=== PATIENT | male | born 1960 | race Caucasian/White ===

== ENCOUNTER 2016-11-22 22:06 | Emergency (ER) | payer OTHER ==
[~2016-11-22] VITALS: Ht 175.3 cm; Wt 122.5 kg
[~2016-11-22 22:06] MED LIST: Z.0.NO CURRENT MEDS
[2016-11-22 22:13] VITALS: BP 131/82; PULSE 108; RESP 18; TEMP 98.5; O2SAT 95
[2016-11-22 22:55] LABS: AMPHETAMINE, URINE NEG (NEG); BARBITURATES, URINE NEG (NEG); COCAINE, URINE NEG (NEG)
[2016-11-22 22:59] LABS: AUTOMATED NEUTROPHIL # 3.5 TH/MM3 (1.8-7.7); BASOPHIL # 0.1 TH/MM3 (0-0.2); BASOPHIL % 0.6 % (0.0-2.0); EOSINOPHIL # 0.1 TH/MM3 (0-0.4); HEMATOCRIT 41.2 % (39.0-51.0); HEMO FLAGS DIFF FINAL; LYMPH % 50.7 % (9.0-44.0); LYMPHOCYTE # 4.6 TH/MM3 (1.0-4.8); MEAN CELL VOLUME 75.1 FL (80.0-100.0); MEAN CORPUSCULAR HEMOGLOBIN 25.4 PG (27.0-34.0); MEAN CORPUSCULAR HGB CONC 33.8 % (32.0-36.0); MONO % 9.1 % (0.0-8.0); NEUT % 38.6 % (16.0-70.0); PLATELET COUNT 232 TH/MM3 (150-450); RED BLOOD COUNT 5.49 MIL/MM3 (4.50-5.90); RED CELL DISTRIBUTION WIDTH 17.5 % (11.6-17.2); WHITE BLOOD COUNT 9.1 TH/MM3 (4.0-11.0)
[2016-11-22 23:01] LABS: ALT (GPT) 41 U/L (12-78); ANION GAP 13 MEQ/L (5-15); AST (GOT) 37 U/L (15-37); BICARBONATE 21.2 MEQ/L (21.0-32.0); BLOOD UREA NITROGEN 10 MG/DL (7-18); CHLORIDE 104 MEQ/L (98-107); GLOMERULAR FILTRATION RATE 69 ML/MIN (>89); POTASSIUM 4.1 MEQ/L (3.5-5.1); SODIUM (NA) 138 MEQ/L (136-145)
[2016-11-22 23:06] LABS: ALKALINE PHOSPHATASE 158 U/L (45-117); TOTAL BILIRUBIN ADULT 0.5 MG/DL (0.2-1.0)
--- NOTE | 2016-11-23 00:53 | PD ---
HPI Chief Complaint: Psychiatric Symptoms Time Seen by Provider: 23:46 Travel History International Travel<30 days: No Contact w/Intl Traveler<30days: No Traveled to known affect area: No History of Present Illness HPI Patient's 56-year-old male presents emergency department after being found in the parking lot intoxicated. Patient apparently made statements to police that he was suicidal and patient states on arrival to the emergency department is been feeling depressed for a long time and did have some suicidal thoughts. Patient does have some abrasions on the right side of his face and does not recall how they got there tonight. Patient is fairly intoxicated on arrival. He denies any chest pain shortness of breath abdominal pain nausea vomiting diarrhea headache or loss of consciousness. Patient does have some complaints of bilateral knee pain which she states she's had for years" if I x-ray and he' ll see that [he's] not faking". PFSH Past Medical History Diminished Hearing: No Hypertension: Yes Immunizations Current: Yes Tetanus Vaccination: > 5 Years Influenza Vaccination: No Social History Alcohol Use: Yes (social) Tobacco Use: No Substance Use: No Allergies-Medications (Allergen,Severity, Reaction): Coded Allergies: No Known Allergies (Verified , 11/22/16) Reported Meds & Prescriptions Reported Meds & Active Scripts Active Reported No Current Meds (Miscellaneous Medication) Misc Review of Systems Except as stated in HPI: all other systems reviewed are Neg Physical Exam Narrative GENERAL: Well-developed well-nourished no apparent distress SKIN: Focused skin assessment warm/dry. HEAD: No mujica signs no raccoons eyes, there is some abrasions over the right side of his face none of these require repair there is no bruising no ecchymosis. Normocephalic. EYES: Pupils equal and round. No scleral icterus. No injection or drainage. ENT: No nasal bleeding or discharge. Mucous membranes pink and moist. TMs clear bilaterally. NECK: Trachea midline. No JVD. CARDIOVASCULAR: Regular rate and rhythm. No murmur appreciated. RESPIRATORY: No accessory muscle use. Clear to auscultation. Breath sounds equal bilaterally. GASTROINTESTINAL: Abdomen soft, non-tender, nondistended. Hepatic and splenic margins not palpable. MUSCULOSKELETAL: No obvious deformities. No clubbing. No cyanosis. No edema. No tenderness at either knee, no swelling, ambulatory in the emergency department. Pulse motor and sensory intact distally in all 4 extremities. Compartments are soft in all 4 extremities. NEUROLOGICAL: Awake and alert. No obvious cranial nerve deficits. Motor grossly within normal limits. Normal speech. PSYCHIATRIC: Appropriate mood and affect; insight and judgment normal. Data Data Last Documented VS Vital Signs Date Time Temp Pulse Resp B/P Pulse Ox O2 Delivery O2 Flow Rate FiO2 11/22/16 22:13 98.5 108 18 131/82 95 Orders Complete Blood Count With Diff (11/22/16 22:18) Comprehensive Metabolic Panel (11/22/16 22:18) Psych Screen (11/22/16 22:18) Drug Screen, Random Urine (11/22/16 22:18) Alcohol (Ethanol) (11/22/16 22:18) Ct Brain W/O Iv Contrast(Rout) (11/23/16 ) Ct Cerv Spine W/O Contrast (11/23/16 ) Acetaminophen (Tylenol) (11/23/16 01:45) Tetanus/Diphtheria Tox Adult (Tetanus/Di (11/23/16 01:45) Labs Laboratory Tests Test 11/22/16 11/22/16 22:25 22:30 White Blood Count 9.1 TH/MM3 Red Blood Count 5.49 MIL/MM3 Hemoglobin 13.9 GM/DL Hematocrit 41.2 % Mean Corpuscular Volume 75.1 FL Mean Corpuscular Hemoglobin 25.4 PG Mean Corpuscular Hemoglobin 33.8 % Concent Red Cell Distribution Width 17.5 % Platelet Count 232 TH/MM3 Mean Platelet Volume 8.2 FL Neutrophils (%) (Auto) 38.6 % Lymphocytes (%) (Auto) 50.7 % Monocytes (%) (Auto) 9.1 % Eosinophils (%) (Auto) 1.0 % Basophils (%) (Auto) 0.6 % Neutrophils # (Auto) 3.5 TH/MM3 Lymphocytes # (Auto) 4.6 TH/MM3 Monocytes # (Auto) 0.8 TH/MM3 Eosinophils # (Auto) 0.1 TH/MM3 Basophils # (Auto) 0.1 TH/MM3 CBC Comment DIFF FINAL Differential Comment Sodium Level 138 MEQ/L Potassium Level 4.1 MEQ/L Chloride Level 104 MEQ/L Carbon Dioxide Level 21.2 MEQ/L Anion Gap 13 MEQ/L Blood Urea Nitrogen 10 MG/DL Creatinine 1.11 MG/DL Estimat Glomerular Filtration 69 ML/MIN Rate Random Glucose 273 MG/DL Calcium Level 8.5 MG/DL Total Bilirubin 0.5 MG/DL Aspartate Amino Transf 37 U/L (AST/SGOT) Alanine Aminotransferase 41 U/L (ALT/SGPT) Alkaline Phosphatase 158 U/L Total Protein 8.4 GM/DL Albumin 4.2 GM/DL Ethyl Alcohol Level 332 MG/DL Urine Opiates Screen NEG Urine Barbiturates Screen NEG Urine Amphetamines Screen NEG Urine Benzodiazepines Screen POS Urine Cocaine Screen NEG Urine Cannabinoids Screen NEG MDM Medical Decision Making Medical Screen Exam Complete: Yes Emergency Medical Condition: Yes Differential Diagnosis Alcohol intoxication, fall, head injury, facial abrasions, suicidal ideation. Narrative Course Patient is a 56 year old male presents to the ER for evaluation of alcohol intoxication and lynn act. Patient has some minor abrasions on the right side of face and states she does not know how they got there. A CT head and C-spine are performed and are negative. None of these abrasions need repair. Patient has no other medical complaints except for chronic knee pain. He was given Tylenol as well as tetanus updated. Basic labs are obtained and reassuring. His alcohol level is 332. After a period of observation in the emergency department his vital signs remained stable needs sleeping soundly in no apparent distress. He is medically cleared for psychiatric evaluation and disposition. Diagnosis Primary Impression: Closed head injury Qualified Code: S09.90XA - Closed head injury, initial encounter Additional Impression: Suicidal ideation Condition: Stable Yung Ray MD Nov 23, 2016 00:53
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
[2016-11-23] MEDS ORDERED: ACETAMINOPHEN 325 MG TAB PO ONE (01:45)
[2016-11-23] MEDS ORDERED: TETANUS/DIPHTHERIA TOXOID ADULT 0.5 ML VIAL IM ONE (01:45)
--- NOTE | 2016-11-23 08:34 | PD ---
History of Present Illness Chief Complaint: Psychiatric Symptoms Time Seen by Provider: 08:25 Travel History International Travel<30 Days: No Contact w/Intl Traveler<30days: No Known affected area: No Legal Status Legal Status: Doss Act History of Present Illness: History of Present Illness Patient's 56-year-old male with self reported history of bipolar disorder as well as alcohol dependence who presents emergency department after being found in the parking lot intoxicated. Patient apparently made statements to police that he was suicidal and therefore was placed under a BA. Patient on arrival to ed with BAL of 332. Toxicology is positive for benzos. Patient seen this morning in main ED. He is clinically sober. He is alert and oriented. Speech is clear, logical. He is irritable and initially resistant to answering questions. He is vague regarding previous psychiatric history and is unable to remember his previous medications. He states " I am suicidal and I was thinking of jumping off a bridge because I am in so much pain with my knee. " He denies any other psychiatric symptomatology, denies depressive symptoms and denies any anxiety symptoms. He requests medication for pain in his knee. Patient reports that he drinks 12 beers every day and has been doing so " for many years". When I address alcohol use and detox he states " I am not here for detox". I'm here because I am suicidal". In terms of the positive toxicology he believes it's from medication he received at another hospital he was last week. [facility] Past Medical History Diminished Hearing: No Hypertension: Yes Immunizations Current: Yes Tetanus Vaccination: > 5 Years Influenza Vaccination: No Psychiatric History Psychiatric History Hx Psychiatric Treatment: In patient tx " about 2 years ago" in [place] Reports dx w bipolar disorder Reports outpatietn treatment " I don't remember the name" Does not remember the medication he has taken History of Inpatient Treatment: Yes Guns or firearms in home: No Social History Born i [place]. Raised in [place], single never . 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 Staying with some friends. Hx Alcohol Use: Yes (Reports he has been drinking for several years. Usually a 12 pack per day. ) Hx Tobacco Use: No Hx Substance Use: No Hx of Substance Use Treatment: No Family Psychiatric History None Allergies-Medications (Allergen,Severity, Reaction): Coded Allergies: No Known Allergies (Verified , 11/22/16) Reported Meds & Prescriptions Reported Meds & Active Scripts Active Reported No Current Meds (Miscellaneous Medication) [facility] [place] Review of Systems Constitutional: DENIES: Diaphoretic episodes, Fatigue, Fever, Weight gain, Weight loss, Chills, Dizziness, Change in appetite, Night Sweats Endocrine: DENIES: Heat/cold intolerance, Polydipsia, Polyuria, Polyphagia Eyes: DENIES: Blurred vision, Diplopia, Eye inflammation, Eye pain, Vision loss , Photosensitivity, Double Vision Ears, nose, mouth, throat: DENIES: Tinnitus, Hearing loss, Vertigo, Nasal discharge, Oral lesions, Throat pain, Hoarseness, Ear Pain, Running Nose, Epistaxis, Sinus Pain, Toothache, Odynophagia Respiratory: DENIES: Apneas, Cough, Snoring, Wheezing, Hemoptysis, Sputum production, Shortness of breath Cardiovascular: DENIES: Chest pain, Palpitations, Syncope, Dyspnea on Exertion , PND, Lower Extremity Edema, Orthopnea, Claudication Gastrointestinal: DENIES: Abdominal pain, Black stools, Bloody stools, Constipation, Diarrhea, Nausea, Vomiting, Difficulty Swallowing, Anorexia Genitourinary: DENIES: Sexual dysfunction, Urinary frequency, Urinary incontinence, Urgency, Hematuria, Dysuria, Nocturia, Penile Discharge, Testicular Pain, Testicular Swelling Musculoskeletal: COMPLAINS OF: Joint pain Integumentary: DENIES: Abnormal pigmentation, Nail changes, Pruritus, Rash Hematologic/lymphatic: DENIES: Bruising, Lymphadenopathy Immunologic/allergic: DENIES: Eczema, Urticaria Neurologic: DENIES: Abnormal gait, Headache, Localized weakness, Paresthesias, Seizures, Speech Problems, Tremor, Poor Balance Psychiatric: COMPLAINS OF: Suicidal Ideation Exam Alert: Yes [place]: Person (ox4) Mood: Angry, Other (Irritable) Affect: Other (congruent to mood) Speech: Clear, Logical Eye Contact: Indirect Memory Intact: Comment (vague) Hallucinations: Other (negative) Delusions: No Suicidal: Ideation (deneis ) Homicidal: Ideation (deneis) Insight/Judgement poor.not impaired MDM Medical Decision Making Medical Record Reviewed: Yes Assessment/Plan 56 year old male with history of alcohol dependence and reported hx of Bipolar disorder who in context of alcohol intoxication reported suicidal ideation. Patient was allowed to sober up clinically and he continued to report suicidal ideation . patient also making several requests for pain medication as well as benzos. Patient was transferred to [facility] for disposition and once in [facility] he recanted his suicidal ideation. He states " I was just not feeling well but to be honest I don't have the guts to do anything ". He requests discharge and states ' I have far to go". I strongly suspect he was malingering his symptoms in order to obtain narcotics. Will lift BA and discharge recommend SMA. Orders Complete Blood Count With Diff (11/22/16 22:18) Comprehensive Metabolic Panel (11/22/16 22:18) Psych Screen (11/22/16 22:18) Drug Screen, Random Urine (11/22/16 22:18) Alcohol (Ethanol) (11/22/16 22:18) Ct Brain W/O Iv Contrast(Rout) (11/23/16 ) Ct Cerv Spine W/O Contrast (11/23/16 ) Acetaminophen (Tylenol) (11/23/16 01:45) Tetanus/Diphtheria Tox Adult (Tetanus/Di (11/23/16 01:45) Results Vital Signs Date Time Temp Pulse Resp B/P Pulse Ox O2 Delivery O2 Flow Rate FiO2 11/22/16 22:13 98.5 108 18 131/82 95 Laboratory Tests Test 11/22/16 11/22/16 22:25 22:30 White Blood Count 9.1 Red Blood Count 5.49 Hemoglobin 13.9 Hematocrit 41.2 Mean Corpuscular Volume 75.1 Mean Corpuscular Hemoglobin 25.4 Mean Corpuscular Hemoglobin 33.8 Concent Red Cell Distribution Width 17.5 Platelet Count 232 Mean Platelet Volume 8.2 Neutrophils (%) (Auto) 38.6 Lymphocytes (%) (Auto) 50.7 Monocytes (%) (Auto) 9.1 Eosinophils (%) (Auto) 1.0 Basophils (%) (Auto) 0.6 Neutrophils # (Auto) 3.5 Lymphocytes # (Auto) 4.6 Monocytes # (Auto) 0.8 Eosinophils # (Auto) 0.1 Basophils # (Auto) 0.1 CBC Comment DIFF FINAL Differential Comment Sodium Level 138 Potassium Level 4.1 Chloride Level 104 Carbon Dioxide Level 21.2 Anion Gap 13 Blood Urea Nitrogen 10 Creatinine 1.11 Estimat Glomerular Filtration 69 Rate Random Glucose 273 Calcium Level 8.5 Total Bilirubin 0.5 Aspartate Amino Transf 37 (AST/SGOT) Alanine Aminotransferase 41 (ALT/SGPT) Alkaline Phosphatase 158 Total Protein 8.4 Albumin 4.2 Ethyl Alcohol Level 332 Urine Opiates Screen NEG Urine Barbiturates Screen NEG Urine Amphetamines Screen NEG Urine Benzodiazepines Screen POS Urine Cocaine Screen NEG Urine Cannabinoids Screen NEG Diagnosis Primary Impression: Alcohol intoxication Additional Impressions: Closed head injury Alcohol-induced mood disorder Ruled Out: Suicidal ideation Prescriptions Unable to Obtain Active Prescriptions or Reported Meds Condition: Stable Problem Qualifiers Primary Impression: Alcohol intoxication Qualified Code: F10.120 - Alcohol intoxication, uncomplicated Additional Impressions: Closed head injury Qualified Code: S09.90XA - Closed head injury, initial encounter Vianney Rogel Nov 23, 2016 08:34
[2016-11-23 08:46] VITALS: BP 171/82; PULSE 78; RESP 16; O2SAT 98
[2016-11-23 10:50] VITALS: BP 167/102; PULSE 100; RESP 18; TEMP 98.3; O2SAT 98
[2016-11-23 11:10] VITALS: BP 165/100; PULSE 100; RESP 18
[2016-11-23] MEDS ORDERED: cloNIDine HCL 0.1 MG TAB PO ONE (11:30)
== END 2016-11-23 13:05 | disposition home or self-care (01) ==
LOC: NEDAMB 22:06 → NEPJ 11-23 13:05
DX: S09.90XA Unspecified injury of head, initial encounter (principal); S00.81XA Abrasion of other part of head, initial encounter; F10.120 Alcohol abuse with intoxication, uncomplicated; R45.851 Suicidal ideations; I10 Essential (primary) hypertension; Z86.59 Personal history of other mental and behavioral disorders; Z87.39 Personal history of other diseases of the musculoskeletal system and connective tissue; X58.XXXA Exposure to other specified factors, initial encounter
CPT/HCPCS: 70450; 72125; 80053; 80307; 85025

== ENCOUNTER 2016-11-23 20:20 | Emergency (ER) | payer SELFPAY ==
[~2016-11-23] VITALS: Ht 175.3 cm; Wt 121.8 kg
[2016-11-23 21:30] LABS: BLOOD, URINE NEG (NEG); GLUCOSE,URINE 1000 mg/dL (NEG); HYALINE CAST, URINE 1 /lpf (RARE); KETONE, URINE NEG (NEG); NITRITE,URINE NEG (NEG); URINE COLOR LIGHT-YELLOW (YELLW/STRAW)
[2016-11-23 21:31] LABS: COMMENT (UR) CULT NOT INDICATED; CULTURE IF INDICATED CULT NOT INDICATED
[2016-11-23 22:01] VITALS: BP 126/76; PULSE 112; RESP 21; TEMP 96.7; O2SAT 92
[2016-11-23 22:03] LABS: AMPHETAMINE, URINE NEG (NEG); BARBITURATES, URINE NEG (NEG); COCAINE, URINE NEG (NEG)
[2016-11-23 22:59] VITALS: BP 151/93; PULSE 99; RESP 20; TEMP 98
[2016-11-23 23:55] LABS: AUTOMATED NEUTROPHIL # 6.3 TH/MM3 (1.8-7.7); BASOPHIL % 0.3 % (0.0-2.0); EOSINOPHIL # 0.1 TH/MM3 (0-0.4); EOSINOPHIL % 0.9 % (0.0-4.0); HEMATOCRIT 37.3 % (39.0-51.0); LYMPH % 35.3 % (9.0-44.0); LYMPHOCYTE # 3.8 TH/MM3 (1.0-4.8); MEAN CELL VOLUME 75.8 FL (80.0-100.0); MEAN CORPUSCULAR HEMOGLOBIN 24.9 PG (27.0-34.0); MEAN CORPUSCULAR HGB CONC 32.8 % (32.0-36.0); MONO % 5.6 % (0.0-8.0); NEUT % 57.9 % (16.0-70.0); PLATELET COUNT 144 TH/MM3 (150-450); RED BLOOD COUNT 4.92 MIL/MM3 (4.50-5.90); WHITE BLOOD COUNT 10.8 TH/MM3 (4.0-11.0)
--- NOTE | 2016-11-23 23:58 | PD ---
HPI Chief Complaint: Suicide Ideation/Attempt Time Seen by Provider: 22:52 Travel History International Travel<30 days: No Contact w/Intl Traveler<30days: No Traveled to known affect area: No History of Present Illness HPI 56-year-old male arrives to the ER complaining of suicidal ideations. He reports a history of alcoholism. He reports a history of alcohol withdrawal seizures. He states he drank four 25 ounce beers today. He notes that last time he was in the [facility] he received nothing for breakfast. He notes he has chronic knee pain is worse with ambulation. He notes that he wants to resume medications for psychiatric disease. he reports the of multiple friends and family members over the past few years. He also states he is worried he might have kidney disease. He fell striking the right parietal scalp prior to his most recent visit here, this morning. Head CT was performed on prior visit here and that was negative. Pt arrives voluntarily. PFSH Past Medical History Atrial Fibrillation: Yes Anxiety: Yes Depression: Yes Diminished Hearing: No Hypertension: Yes Immunizations Current: Yes Social History Alcohol Use: Yes Tobacco Use: No Substance Use: Yes (MJ) Allergies-Medications (Allergen,Severity, Reaction): Coded Allergies: No Known Allergies (Verified , 11/23/16) Reported Meds & Prescriptions Reported Meds & Active Scripts Active Active Prescriptions or Reported Medications Unobtainable Review of Systems Except as stated in HPI: all other systems reviewed are Neg General / Constitutional: No: Fever, Chills Psychiatric: Positive: Depression, Suicidal Ideations, Substance Abuse Physical Exam Narrative GENERAL: 56 yo M, resting watching tv, eating sabrina crackers, drinking gatorade SKIN: Warm and dry. HEAD: Atraumatic. Normocephalic. EYES: Pupils equal and round. No scleral icterus. No injection or drainage. ENT: No nasal bleeding or discharge. Mucous membranes pink and moist. NECK: Trachea midline. No JVD. CARDIOVASCULAR: Regular rate and rhythm. RESPIRATORY: No accessory muscle use. Clear to auscultation. Breath sounds equal bilaterally. GASTROINTESTINAL: Abdomen soft, non-tender, nondistended. Hepatic and splenic margins not palpable. MUSCULOSKELETAL: Extremities without clubbing, cyanosis, or edema. No obvious deformities. NEUROLOGICAL: Awake and alert. No obvious cranial nerve deficits. Motor grossly within normal limits. Five out of 5 muscle strength in the arms and legs. Normal speech. PSYCHIATRIC: c/o SI, no HI. alcoholism Data Data Last Documented VS Vital Signs Date Time Temp Pulse Resp B/P Pulse Ox O2 Delivery O2 Flow Rate FiO2 11/23/16 22:59 98.0 99 20 151/93 11/23/16 22:01 92 Nasal Cannula 2 vs reviewed Orders Drug Screen, Random Urine (11/23/16 21:17) Urinalysis - C+S If Indicated (11/23/16 21:17) Complete Blood Count With Diff (11/23/16 22:48) Comprehensive Metabolic Panel (11/23/16 23:35) Psych Screen (11/23/16 23:35) Alcohol (Ethanol) (11/23/16 23:35) Labs Laboratory Tests Test 11/23/16 11/23/16 11/24/16 21:20 23:15 01:17 Urine Color LIGHT-YELLOW Urine Turbidity CLEAR Urine pH 5.0 Urine Specific [place] 1.003 Urine Protein TRACE mg/dL Urine Glucose (UA) 1000 mg/dL Urine Ketones NEG mg/dL Urine Occult Blood NEG Urine Nitrite NEG Urine Bilirubin NEG Urine Urobilinogen LESS THAN 2.0 MG/DL Urine Leukocyte Esterase NEG Urine WBC 1 /hpf Urine Hyaline Casts 1 /lpf Microscopic Urinalysis Comment CULT NOT INDICATED Urine Opiates Screen NEG Urine Barbiturates Screen NEG Urine Amphetamines Screen NEG Urine Benzodiazepines Screen POS Urine Cocaine Screen NEG Urine Cannabinoids Screen NEG White Blood Count 10.8 TH/MM3 Red Blood Count 4.92 MIL/MM3 Hemoglobin 12.2 GM/DL Hematocrit 37.3 % Mean Corpuscular Volume 75.8 FL Mean Corpuscular Hemoglobin 24.9 PG Mean Corpuscular Hemoglobin 32.8 % Concent Red Cell Distribution Width 17.0 % Platelet Count 144 TH/MM3 Mean Platelet Volume 8.1 FL Neutrophils (%) (Auto) 57.9 % Lymphocytes (%) (Auto) 35.3 % Monocytes (%) (Auto) 5.6 % Eosinophils (%) (Auto) 0.9 % Basophils (%) (Auto) 0.3 % Neutrophils # (Auto) 6.3 TH/MM3 Lymphocytes # (Auto) 3.8 TH/MM3 Monocytes # (Auto) 0.6 TH/MM3 Eosinophils # (Auto) 0.1 TH/MM3 Basophils # (Auto) 0.0 TH/MM3 CBC Comment AUTO DIFF Differential Comment AUTO DIFF CONFIRMED Sodium Level 137 MEQ/L Potassium Level 3.6 MEQ/L Chloride Level 101 MEQ/L Carbon Dioxide Level 21.5 MEQ/L Anion Gap 15 MEQ/L Blood Urea Nitrogen 9 MG/DL Creatinine 0.99 MG/DL Estimat Glomerular Filtration 78 ML/MIN Rate Random Glucose 289 MG/DL Calcium Level 8.5 MG/DL Total Bilirubin 0.7 MG/DL Aspartate Amino Transf 32 U/L (AST/SGOT) Alanine Aminotransferase 35 U/L (ALT/SGPT) Alkaline Phosphatase 145 U/L Total Protein 7.4 GM/DL Albumin 3.6 GM/DL Ethyl Alcohol Level 166 MG/DL [facility] Medical Decision Making Medical Screen Exam Complete: Yes Emergency Medical Condition: Yes Differential Diagnosis Altered mental status/psychosis due to infection/environmental exposure/ metabolic abnormality, polypharmacy, alcohol abuse/intoxication, illicit or prescribed drug abuse, malingering/secondary gain, non-organic psychiatric disease Narrative Course Patient asleep at 12:20 AM Patient asleep at 2:30 AM CBC & BMP Diagram 11/23/16 23:15 11/24/16 01:17 LFTs are essentially unremarkable Urine toxicology reveals benzodiazepines Blood alcohol 166 At :235AM the patient was notified that his glucose is elevated, a finding consistent with diabetes, and follow up for the same is necessary. The history of present illness, ROS, physical exam, review of records and medical workup performed for today's visit have reasonably safely excluded organic etiologies for the patient's presenting complaint. We will continue to monitor the patient carefully in the ER until time of evaluation by the psychiatry service. We are available for any additional medical assistance if needed during the patient's ER course. Disposition per discretion of psychiatry is appreciated. Diagnosis Primary Impression: Alcohol intoxication Qualified Code: F10.120 - Alcohol intoxication, uncomplicated Additional Impressions: Suicidal ideation Pain in right knee Qualified Code: M25.561 - Chronic pain of right knee Hyperglycemia Referrals: Raj Salinas MD Patient Assistance Program Scripts Unable to Obtain Active Prescriptions or Reported Meds Isael Hernandez MD Nov 23, 2016 23:58
[2016-11-24 00:10] LABS: HEMO FLAGS AUTO DIFF
[2016-11-24 00:32] LABS: SCAN/DIFF AUTO DIFF CONFIRMED
[2016-11-24 02:29] LABS: ALKALINE PHOSPHATASE 145 U/L (45-117); ALT (GPT) 35 U/L (12-78); ANION GAP 15 MEQ/L (5-15); AST (GOT) 32 U/L (15-37); BICARBONATE 21.5 MEQ/L (21.0-32.0); BLOOD UREA NITROGEN 9 MG/DL (7-18); CHLORIDE 101 MEQ/L (98-107); GLOMERULAR FILTRATION RATE 78 ML/MIN (>89); POTASSIUM 3.6 MEQ/L (3.5-5.1); SODIUM (NA) 137 MEQ/L (136-145); TOTAL BILIRUBIN ADULT 0.7 MG/DL (0.2-1.0)
[2016-11-24 03:52] VITALS: BP 146/81; PULSE 90; RESP 19; O2SAT 98
[2016-11-24] MEDS ORDERED: LORazepam 2 MG TAB PO ONE (09:15)
[2016-11-24 09:31] VITALS: BP 176/89; PULSE 103; RESP 20; TEMP 98; O2SAT 95
[2016-11-24] MEDS ORDERED: LORazepam 2 MG TAB PO PRN (10:30)
[2016-11-24] MEDS ORDERED: FLUMAZENIL 0.5 MG/5 ML VIAL IV PUSH PRN (10:30)
[2016-11-24] MEDS ORDERED: LORazepam 2 MG/ML VIAL IV PUSH PRN ×4 (10:30)
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
[2016-11-24 12:44] VITALS: BP 148/100; PULSE 103; RESP 22; TEMP 98.4; O2SAT 98
[2016-11-24 18:02] VITALS: BP 148/90; PULSE 72; RESP 18; O2SAT 98
[2016-11-24] MEDS ORDERED: GLUCAGON 1 MG/ML VIAL OTHER PRN (19:30)
[2016-11-24] MEDS ORDERED: DEXTROSE 50% IN WATER 50 ML VIAL(D50) IV PUSH PRN (19:30)
[2016-11-24] MEDS: LORazepam 1 MG TAB PO PRN ×2 (20:01→23:38)
[2016-11-24] MEDS: INSULIN NovoLIN REGULAR SUPPLEMENTAL SCALE SQ SCH (21:12)
[2016-11-24] MEDS ORDERED: traZODone HCL 100 MG TAB PO ONE (22:15)
[2016-11-24 22:23] VITALS: BP 167/90; PULSE 103; RESP 18; O2SAT 98
[2016-11-25 02:22] VITALS: BP 153/99; PULSE 98; RESP 18; O2SAT 97
[2016-11-25 06:25] VITALS: BP 145/100; PULSE 88; RESP 18; O2SAT 97
[2016-11-25] MEDS: LORazepam 1 MG TAB PO PRN (06:37)
[2016-11-25] MEDS: INSULIN NovoLIN REGULAR SUPPLEMENTAL SCALE SQ SCH (07:55)
--- NOTE | 2016-11-25 08:55 | HHI.PYPN ---
Subjective Remarks Patient seen and examined. Chart reviewed. Case d/w RN in J-Pod. No evidence of any suicidality or homicidality while under observation in [facility]. On my examination today, patient recants suicidality. He is requesting discharge from the J-pod this morning. No current suicidal or homicidal ideation. He contracts for safety and says that he will comment to the ED if he experiences any suicidal or homicidal ideation in the future. Mood remains a little down but not severely depressed. He is future oriented and says that he is going to try to earn some money and go out to [place]. No evidence of any psychosis. No AVH. No delusions. No hypomanic or manic symptoms. The remainder of the psychiatric ROS is negative. Review of Systems Except as stated in HPI: all other systems reviewed are Neg Objective Alert: Yes [place]: Person, Place, Date, Situation Mood: Calm (mildly dysphoric) Affect: Blunted Memory Intact: Comment (intact on clinical exam) Hallucinations: Other (no AVH) Delusions: No Delusion Type: Other (no delusional material) Suicidal: Ideation (no suicidal ideation, intent or plan) Homicidal: Ideation (no homicidal ideation, intent or plan) Insight/Judgement Fair Remarks Mild hand tremor. No diaphoresis, no mydriasis, no tongue fasciculations. No other signs of withdrawal. No other motoric abnormalities. Steady gait and station. Speech is within normal limits for rate, tone and volume. Thought process linear. Grooming and hygiene fair. Labs Labs reviewed. Vitals/IOs Vital Signs Date Time Temp Pulse Resp B/P Pulse Ox O2 Delivery O2 Flow Rate FiO2 11/25/16 06:25 88 18 145/100 97 11/25/16 02:22 Room Air 11/24/16 12:44 98.4 11/23/16 22:01 2 Intake and Output 11/24/16 11/24/16 11/25/16 08:00 16:00 00:00 Intake Total 240 ml Balance 240 ml Assessment & Plan Problem List: (1) Alcohol dependence Assessment & Plan: Mood disorder mild ICD Code: F10.20 Assessment & Plan Patient now requesting discharge from the psychiatric emergency room. No suicidal or homicidal ideation currently. No evidence of any severely unstable mood, anxiety or psychotic disorder in this patient at this time. Appears to be attending to basic needs. Patient doesn't meet Doss act criteria. Okay to discharge from the ED from a psychiatric standpoint. I have encouraged the patient to pursue chemical dependency evaluation and treatment on outpatient basis. I counseled the patient regarding warning signs for need to return to the psychiatric emergency room as part of a general safety plan. Justification for Cont. Inpt. Psychiatrically clear for discharge from the ED. Request HC Surrog/Guard Advoc?: No Problem Qualifiers (1) Alcohol dependence: Qualified Code: F10.24 - Alcohol dependence with alcohol-induced mood disorder Yefri Corona MD Nov 25, 2016 08:55
== END 2016-11-25 11:23 | disposition home or self-care (01) ==
LOC: NEDAMB 20:20 → NEPJ 11-25 11:23
DX: F10.24 Alcohol dependence with alcohol-induced mood disorder (principal); G89.29 Other chronic pain; M25.561 Pain in right knee; Y90.6 Blood alcohol level of 120-199 mg/100 ml
CPT/HCPCS: 80053; 80307; 81001; 85025; 96372

== ENCOUNTER 2016-11-25 20:45 | Emergency (ER) | payer SELFPAY ==
[~2016-11-25] VITALS: Ht 175.3 cm; Wt 121.0 kg
[2016-11-25 20:52] VITALS: BP 160/97; PULSE 102; RESP 16; TEMP 97.8; O2SAT 95
[2016-11-26] MEDS ORDERED: SODIUM CHLOR 0.9% 1000 ML INJ 1,000 ML IV ONE (00:45)
[2016-11-26 01:04] LABS: BLOOD GAS VENOUS BASE EXCESS -3.8 mmol/L (-2-2); BLOOD GAS VENOUS HCO3 20 mmol/L (22-26); BLOOD GAS VENOUS O2 CONTENT 16.6 Vol % (9.0-17.0); BLOOD GAS VENOUS O2 HGB SAT 85 % (70-76); BLOOD GAS VENOUS PCO2 34 mmHg (44-48); BLOOD GAS VENOUS PO2 57 mmHg (35-40); BLOOD GAS VENOUS pH 7.39 (7.360-7.400); CRITICAL VALUE NO; FIO2 21 %; OXYGEN DEVICE ROOM AIR; TEMP CORR TO 98.6
[2016-11-26 01:05] LABS: DRAW SITE LINE; STAT YES
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
[2016-11-26 01:21] LABS: BASOPHIL # 0.1 TH/MM3 (0-0.2); BASOPHIL % 0.6 % (0.0-2.0); EOSINOPHIL # 0.1 TH/MM3 (0-0.4); EOSINOPHIL % 1.6 % (0.0-4.0); HEMATOCRIT 40.2 % (39.0-51.0); HEMO FLAGS DIFF FINAL; LYMPH % 44.5 % (9.0-44.0); LYMPHOCYTE # 3.8 TH/MM3 (1.0-4.8); MEAN CELL VOLUME 75.5 FL (80.0-100.0); MEAN CORPUSCULAR HEMOGLOBIN 25.5 PG (27.0-34.0); MEAN CORPUSCULAR HGB CONC 33.7 % (32.0-36.0); MONO % 6.7 % (0.0-8.0); NEUT % 46.6 % (16.0-70.0); PLATELET COUNT 181 TH/MM3 (150-450); RED BLOOD COUNT 5.32 MIL/MM3 (4.50-5.90); RED CELL DISTRIBUTION WIDTH 17.3 % (11.6-17.2); WHITE BLOOD COUNT 8.6 TH/MM3 (4.0-11.0)
[2016-11-26 02:06] LABS: ALKALINE PHOSPHATASE 159 U/L (45-117); TOTAL BILIRUBIN ADULT 0.6 MG/DL (0.2-1.0)
[2016-11-26 02:19] LABS: ALT (GPT) 47 U/L (12-78); ANION GAP 13 MEQ/L (5-15); AST (GOT) 75 U/L (15-37); BETA-HYDROXYBUTYRATE 0.37 MMOL/L (0.00-0.39); BICARBONATE 21.5 MEQ/L (21.0-32.0); BLOOD UREA NITROGEN 12 MG/DL (7-18); CHLORIDE 101 MEQ/L (98-107); GLOMERULAR FILTRATION RATE 58 ML/MIN (>89); SODIUM (NA) 135 MEQ/L (136-145)
[2016-11-26 02:20] LABS: POTASSIUM 5.2 MEQ/L (3.5-5.1)
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
[2016-11-26 04:33] VITALS: BP 157/94; PULSE 95; RESP 17; O2SAT 98
[2016-11-26 04:50] LABS: BACTERIA, URINE RARE /hpf; BLOOD, URINE NEG (NEG); GLUCOSE,URINE 1000 mg/dL (NEG); HYALINE CAST, URINE 1 /lpf (RARE); KETONE, URINE 10 mg/dL (NEG); MUCUS URINE FEW /lpf (OCC); NITRITE,URINE NEG (NEG); SQUAMOUS EPITHELIAL CELL URINE <1 /hpf (0-5); URINE COLOR YELLOW (YELLW/STRAW)
[2016-11-26 04:51] LABS: COMMENT (UR) CULT NOT INDICATED; CULTURE IF INDICATED CULT NOT INDICATED
[2016-11-26 04:56] LABS: AMPHETAMINE, URINE NEG (NEG); BARBITURATES, URINE NEG (NEG); COCAINE, URINE NEG (NEG)
[2016-11-26] MEDS ORDERED: INSULIN HUMAN REGULAR 1,000 UNITS/10 ML VIAL SQ ONE (05:00)
[2016-11-26] MEDS ORDERED: IBUPROFEN 600 MG TAB PO ONE (06:00)
[2016-11-26 07:10] VITALS: BP 137/78; PULSE 97; RESP 20; TEMP 98.7; O2SAT 97
== END 2016-11-26 11:07 | disposition home or self-care (01) ==
LOC: NEPC 20:45
DX: R44.0 Auditory hallucinations (principal); F10.10 Alcohol abuse, uncomplicated; M17.31 Unilateral post-traumatic osteoarthritis, right knee; F31.9 Bipolar disorder, unspecified; I48.91 Unspecified atrial fibrillation; G89.29 Other chronic pain; I10 Essential (primary) hypertension; E11.9 Type 2 diabetes mellitus without complications
CPT/HCPCS: 73564; 80053; 80307; 81001; 82010; 82805; 83735; 85025; 96360; 96372; 99284; J1815; J7030

== ENCOUNTER 2016-11-28 20:03 | Emergency (ER) | payer SELFPAY ==
[2016-11-29] MEDS ORDERED: METF500 PO (04:19)
[2016-11-29] MEDS ORDERED: GLIP10TA6 PO (22:38)
== END 2016-11-28 20:05 | disposition left against medical advice (07) ==
LOC: NEDAMB 20:03
DX: R73.9 Hyperglycemia, unspecified (principal)
CPT/HCPCS: 99281

== ENCOUNTER 2016-11-28 23:02 | Emergency (ER) | payer SELFPAY ==
[~2016-11-28] VITALS: Ht 175.3 cm; Wt 121.0 kg
[2016-11-28 23:03] VITALS: BP 180/106; PULSE 110; RESP 16; TEMP 99.1; O2SAT 96
[2016-11-29] MEDS ORDERED: SODIUM CHLOR 0.9% 1000 ML INJ 1,000 ML IV ONE ×2 (01:43→02:13)
[2016-11-29] MEDS ORDERED: SODIUM CHLORIDE 0.9% FLUSH 10 ML FLUSH IVF PRN (01:45)
[2016-11-29 02:44] LABS: BLOOD, URINE NEG (NEG); COMMENT (UR) CULT NOT INDICATED; CULTURE IF INDICATED CULT NOT INDICATED; GLUCOSE,URINE 1000 mg/dL (NEG); KETONE, URINE NEG (NEG); MUCUS URINE FEW /lpf (OCC); NITRITE,URINE NEG (NEG); URINE COLOR LIGHT-YELLOW (YELLW/STRAW)
[2016-11-29 02:52] LABS: AUTOMATED NEUTROPHIL # 2.5 TH/MM3 (1.8-7.7); BASOPHIL % 0.3 % (0.0-2.0); EOSINOPHIL # 0.1 TH/MM3 (0-0.4); EOSINOPHIL % 2.1 % (0.0-4.0); HEMATOCRIT 38.3 % (39.0-51.0); LYMPH % 49.5 % (9.0-44.0); LYMPHOCYTE # 3.3 TH/MM3 (1.0-4.8); MEAN CELL VOLUME 76.1 FL (80.0-100.0); MEAN CORPUSCULAR HEMOGLOBIN 24.4 PG (27.0-34.0); MEAN CORPUSCULAR HGB CONC 32.1 % (32.0-36.0); MONO % 10.9 % (0.0-8.0); NEUT % 37.2 % (16.0-70.0); PLATELET COUNT 138 TH/MM3 (150-450); RED BLOOD COUNT 5.03 MIL/MM3 (4.50-5.90); RED CELL DISTRIBUTION WIDTH 17.7 % (11.6-17.2); WHITE BLOOD COUNT 6.7 TH/MM3 (4.0-11.0)
[2016-11-29 02:56] LABS: ALKALINE PHOSPHATASE 151 U/L (45-117); TOTAL BILIRUBIN ADULT 0.6 MG/DL (0.2-1.0)
[2016-11-29 02:59] LABS: HEMO FLAGS AUTO DIFF
[2016-11-29 03:07] LABS: ALT (GPT) 44 U/L (12-78); ANION GAP 13 MEQ/L (5-15); AST (GOT) 53 U/L (15-37); BICARBONATE 21.6 MEQ/L (21.0-32.0); BLOOD UREA NITROGEN 9 MG/DL (7-18); CHLORIDE 104 MEQ/L (98-107); GLOMERULAR FILTRATION RATE 74 ML/MIN (>89); POTASSIUM 4.4 MEQ/L (3.5-5.1); SODIUM (NA) 139 MEQ/L (136-145)
[2016-11-29 03:53] LABS: SCAN/DIFF AUTO DIFF CONFIRMED
[2016-11-29 03:55] LABS: PLATELET ESTIMATE SMEAR LOW (NORMAL)
[2016-11-29 03:57] LABS: OVALOCYTES 1+ (NORMAL); PLATELET MORPHOLOGY NORMAL (NORMAL)
--- NOTE | 2016-11-29 04:05 | PD ---
HPI Chief Complaint: Diabetic Time Seen by Provider: 01:40 Travel History International Travel<30 days: No Contact w/Intl Traveler<30days: No Traveled to known affect area: No History of Present Illness HPI Patient is a 56 year old male presents for evaluation of hyperglycemia. Patient states he has not had his diabetes medicines "glyburide 20mg and metformen 500mg" for many months. Patient recently relocated to the area and has been to this ER multiple times for alcohol intoxication. Patient denies drinking tonight. States has been urinating a lot and has also been feeling very dehydrated. Apparently his BG TRY OUT PERSON was >500. He denies any cp/sob/abd pain /n/v/d/constipation. He states he will be moving to [place] end of the month and wants to get into there. PFSH Past Medical History Atrial Fibrillation: Yes Anxiety: Yes Depression: Yes Diabetes: Yes (RAN OUT OF MEDS FOR MONTHS) Patient Takes Glucophage: No Diminished Hearing: No Hypertension: Yes Immunizations Current: Yes Social History Alcohol Use: Yes (at least 12 beers per day.) Tobacco Use: Yes Substance Use: Yes () Allergies-Medications (Allergen,Severity, Reaction): Coded Allergies: No Known Allergies (Verified , 11/29/16) Reported Meds & Prescriptions Reported Meds & Active Scripts Active Glipizide 10 Mg Tab 10 Mg PO BIDAC Take 30 minutes before a meal Reported Glipizide 10 Mg Tab 20 Mg PO DAILY Take 30 minutes before a meal Review of Systems Except as stated in HPI: all other systems reviewed are Neg Physical Exam Narrative GENERAL: WD/WN morbidly obese in NAD. SKIN: Warm and dry. HEAD: Atraumatic. Normocephalic. EYES: Pupils equal and round. No scleral icterus. No injection or drainage. ENT: No nasal bleeding or discharge. Mucous membranes pink and moist. NECK: Trachea midline. No JVD. CARDIOVASCULAR: Regular rate and rhythm. RESPIRATORY: No accessory muscle use. Clear to auscultation. Breath sounds equal bilaterally. GASTROINTESTINAL: Abdomen soft, non-tender, nondistended. Hepatic and splenic margins not palpable. MUSCULOSKELETAL: Extremities without clubbing, cyanosis, or edema. No obvious deformities. NEUROLOGICAL: Awake and alert. No obvious cranial nerve deficits. Motor grossly within normal limits. Five out of 5 muscle strength in the arms and legs. Normal speech. PSYCHIATRIC: Appropriate mood and affect; insight and judgment normal. Data Data Last Documented VS Orders Complete Blood Count With Diff (11/29/16 01:43) Comprehensive Metabolic Panel (11/29/16 01:43) Urinalysis - C+S If Indicated (11/29/16 01:43) Ecg Monitoring (11/29/16 01:43) Iv Access Insert/Monitor (11/29/16 01:43) Oximetry (11/29/16 01:43) NPO (11/29/16 01:43) Sodium Chlor 0.9% 1000 Ml Inj (Ns 1000 M (11/29/16 01:43) Sodium Chlor 0.9% 1000 Ml Inj (Ns 1000 M (11/29/16 02:13) Sodium Chloride 0.9% Flush (Ns Flush) (11/29/16 01:45) Acetaminophen (Tylenol) (11/29/16 04:15) Labs Laboratory Tests Test 11/29/16 02:30 White Blood Count 6.7 TH/MM3 Red Blood Count 5.03 MIL/MM3 Hemoglobin 12.3 GM/DL Hematocrit 38.3 % Mean Corpuscular Volume 76.1 FL Mean Corpuscular Hemoglobin 24.4 PG Mean Corpuscular Hemoglobin 32.1 % Concent Red Cell Distribution Width 17.7 % Platelet Count 138 TH/MM3 Mean Platelet Volume 7.9 FL Neutrophils (%) (Auto) 37.2 % Lymphocytes (%) (Auto) 49.5 % Monocytes (%) (Auto) 10.9 % Eosinophils (%) (Auto) 2.1 % Basophils (%) (Auto) 0.3 % Neutrophils # (Auto) 2.5 TH/MM3 Lymphocytes # (Auto) 3.3 TH/MM3 Monocytes # (Auto) 0.7 TH/MM3 Eosinophils # (Auto) 0.1 TH/MM3 Basophils # (Auto) 0.0 TH/MM3 CBC Comment AUTO DIFF Differential Comment AUTO DIFF CONFIRMED Platelet Estimate LOW Platelet Morphology Comment NORMAL Ovalocytes 1+ Urine Color LIGHT-YELLOW Urine Turbidity CLEAR Urine pH 5.0 Urine Specific [place] 1.026 Urine Protein NEG mg/dL Urine Glucose (UA) 1000 mg/dL Urine Ketones NEG mg/dL Urine Occult Blood NEG Urine Nitrite NEG Urine Bilirubin NEG Urine Urobilinogen LESS THAN 2.0 MG/DL Urine Leukocyte Esterase NEG Urine RBC 1 /hpf Urine WBC LESS THAN 1 /hpf Urine Mucus FEW /lpf Microscopic Urinalysis Comment CULT NOT INDICATED Sodium Level 139 MEQ/L Potassium Level 4.4 MEQ/L Chloride Level 104 MEQ/L Carbon Dioxide Level 21.6 MEQ/L Anion Gap 13 MEQ/L Blood Urea Nitrogen 9 MG/DL Creatinine 1.04 MG/DL Estimat Glomerular Filtration 74 ML/MIN Rate Random Glucose 327 MG/DL Calcium Level 8.6 MG/DL Total Bilirubin 0.6 MG/DL Aspartate Amino Transf 53 U/L (AST/SGOT) Alanine Aminotransferase 44 U/L (ALT/SGPT) Alkaline Phosphatase 151 U/L Total Protein 7.5 GM/DL Albumin 3.7 GM/DL [facility] Medical Decision Making Medical Screen Exam Complete: Yes Emergency Medical Condition: Yes Differential Diagnosis Hyperglycemia, DKA, electrolyte abnormality, poor social situation. Narrative Course Patient is a 56 year old male presents for concerns for hyperglycemia. Multiple presentations to this ER for alcohol intoxication. Labs reassuring. Patient states is on glyburide 20 mg twice a day. We'll start metformin 500 mg twice a day. He is clinically sober and stable for discharge. Discussed follow up with [facility]. Discussed return to ED criteria. Diagnosis Primary Impression: Hyperglycemia Med/Other Pt SpecificInfo: Prescription(s) given Disposition: 01 DISCHARGE HOME Condition: Stable Yung Ray MD Nov 29, 2016 04:05
[2016-11-29] MEDS ORDERED: ACETAMINOPHEN 325 MG TAB PO ONE (04:15)
[2016-11-29] MEDS ORDERED: METF500 PO (04:19)
[2016-11-29 05:17] VITALS: BP 158/86; PULSE 98; RESP 16; O2SAT 95
[2016-11-29] MEDS ORDERED: GLIP10TA6 PO (22:38)
[2016-11-30] MEDS ORDERED: GLIP10TA6 PO (00:29)
== END 2016-11-29 05:15 | disposition home or self-care (01) ==
LOC: NEPC 23:02
DX: E11.65 Type 2 diabetes mellitus with hyperglycemia (principal); Z79.84 Long term (current) use of oral hypoglycemic drugs
CPT/HCPCS: 80053; 81001; 85025; 96360; 99284; J7030

== ENCOUNTER 2016-11-29 18:35 | Emergency (ER) | payer SELFPAY ==
[~2016-11-29] VITALS: Ht 175.3 cm; Wt 121.0 kg
[~2016-11-29 18:35] MED LIST changes: +METF500 PO; -Z.0.NO CURRENT MEDS
[2016-11-29 18:44] VITALS: BP 113/79; PULSE 98; RESP 17; TEMP 97.9; O2SAT 98
[2016-11-29] MEDS ORDERED: GLIP10TA6 PO (22:38)
[2016-11-29] MEDS ORDERED: SODIUM CHLOR 0.9% 1000 ML INJ 1,000 ML IV ONE ×2 (22:45)
[2016-11-29] MEDS ORDERED: INSULIN ASPART 1,000 UNITS/10 ML VIAL SQ ONE (22:45)
--- NOTE | 2016-11-29 22:51 | PD ---
HPI Chief Complaint: Diabetic Time Seen by Provider: 22:31 Travel History International Travel<30 days: No Contact w/Intl Traveler<30days: No Traveled to known affect area: No History of Present Illness HPI So 56 year-old man, apparently homeless, presents to the emergency department complaining of suicidal ideations, as well as feeling weak and lightheaded and passed out. He is a history of diabetes but is been out of his medicines for some time. He's been trying to get back to but now. He states today he passed out and injured his right knee again. His a history of chronic right knee problems. He was seen in the emergency department twice yesterday related to blood sugar. Is been seen for auditory hallucinations in the past as well. Patient states been more depressed over since multiple family members have , and is been having intermittent suicidal ideations, worse today. Patient reports a history of alcoholism and last drank earlier this morning. History Past Medical History Narrative Medical Diabetes Hypertension History depression and SI History of alcoholism Social History Alcohol Use: Yes (at least 12 beers per day.) Tobacco Use: No (never) Allergies-Medications (Allergen,Severity, Reaction): Coded Allergies: No Known Allergies (Verified , 11/29/16) Reported Meds & Prescriptions Reported Meds & Active Scripts Active Reported Glipizide 10 Mg Tab 20 Mg PO DAILY Take 30 minutes before a meal Review of Systems Except as stated in HPI: all other systems reviewed are Neg Physical Exam Narrative GENERAL: 56 year-old man, little bit disheveled, no acute distress. SKIN: Focused skin assessment warm/dry. HEAD: Atraumatic. Normocephalic. CARDIOVASCULAR: Regular rate and rhythm. No murmur appreciated. RESPIRATORY: No accessory muscle use. Clear to auscultation. Breath sounds equal bilaterally. GASTROINTESTINAL: Abdomen soft, non-tender, nondistended. Hepatic and splenic margins not palpable. MUSCULOSKELETAL: No obvious deformities. There is some disease of the chronic edema both legs. No asymmetry. Right knee is grossly normal. No effusion or obvious instability. Full range of motion. NEUROLOGICAL: Awake and alert. No obvious cranial nerve deficits. Motor grossly within normal limits. Normal speech. PSYCHIATRIC: Normal affect, endorses SI. Data Data Last Documented VS Vital Signs Date Time Temp Pulse Resp B/P Pulse Ox O2 Delivery O2 Flow Rate FiO2 11/29/16 18:44 97.9 98 17 113/79 98 Orders Complete Blood Count With Diff (11/29/16 22:41) Comprehensive Metabolic Panel (11/29/16 22:41) Alcohol (Ethanol) (11/29/16 22:41) Drug Screen, Random Urine (11/29/16 22:41) Iv Access Insert/Monitor (11/29/16 22:41) Knee, Complete (4vws) (11/29/16 ) Psych Screen (11/29/16 22:41) Sodium Chlor 0.9% 1000 Ml Inj (Ns 1000 M (11/29/16 22:45) Sodium Chlor 0.9% 1000 Ml Inj (Ns 1000 M (11/29/16 22:45) Insulin Aspart Inj (Novolog Inj) (11/29/16 22:45) Labs Laboratory Tests Test 11/29/16 11/29/16 23:00 23:50 Sodium Level 139 MEQ/L Potassium Level 3.6 MEQ/L Chloride Level 104 MEQ/L Carbon Dioxide Level 21.7 MEQ/L Anion Gap 13 MEQ/L Blood Urea Nitrogen 9 MG/DL Creatinine 0.97 MG/DL Estimat Glomerular Filtration 80 ML/MIN Rate Random Glucose 318 MG/DL Calcium Level 8.1 MG/DL Total Bilirubin 0.4 MG/DL Aspartate Amino Transf 40 U/L (AST/SGOT) Alanine Aminotransferase 39 U/L (ALT/SGPT) Alkaline Phosphatase 136 U/L Total Protein 6.8 GM/DL Albumin 3.3 GM/DL Ethyl Alcohol Level 118 MG/DL White Blood Count 5.4 TH/MM3 Red Blood Count 4.86 MIL/MM3 Hemoglobin 12.4 GM/DL Hematocrit 36.6 % Mean Corpuscular Volume 75.4 FL Mean Corpuscular Hemoglobin 25.4 PG Mean Corpuscular Hemoglobin 33.7 % Concent Red Cell Distribution Width 17.4 % Platelet Count 126 TH/MM3 Mean Platelet Volume 8.2 FL Neutrophils (%) (Auto) 40.1 % Lymphocytes (%) (Auto) 47.5 % Monocytes (%) (Auto) 9.6 % Eosinophils (%) (Auto) 2.4 % Basophils (%) (Auto) 0.4 % Neutrophils # (Auto) 2.2 TH/MM3 Lymphocytes # (Auto) 2.6 TH/MM3 Monocytes # (Auto) 0.5 TH/MM3 Eosinophils # (Auto) 0.1 TH/MM3 Basophils # (Auto) 0.0 TH/MM3 CBC Comment DIFF FINAL Differential Comment Urine Opiates Screen NEG Urine Barbiturates Screen NEG Urine Amphetamines Screen NEG Urine Benzodiazepines Screen POS Urine Cocaine Screen NEG Urine Cannabinoids Screen NEG MDM Medical Decision Making Medical Screen Exam Complete: Yes Emergency Medical Condition: Yes Interpretation(s) LABS: CBC remarkable for mild anemia. CMP remarkable for glucose of 318 . Judgment positive for benzodiazepines Alcohol 118 Right knee x-ray: Osteoarthritis. Differential Diagnosis SI, dehydration, hyperglycemia, alcoholism, other Narrative Course Medical decision making INITIAL: Is a 56 year-old man who presents emergency department complaining of symptoms seem to be related to dehydration from elevated blood sugar. We'll give him IV fluids, insulin, check some labs. We'll x-ray his right knee, doubt any bony injury. Patient is requesting that she psychiatry for increased depression and suicidality symptoms. He'll be voluntary psych eval. FINAL: Patient medically clear for psychiatric evaluation. We'll follow blood sugar. Diagnosis Primary Impression: Osteoarthritis of right knee Additional Impression: Suicidal ideation Scripts Glipizide 10 Mg Tab10 Mg PO BIDAC #60 TAB Ref 0 Take 30 minutes before a meal Prov:Saul Javier MD 11/30/16 Saul Javier MD Nov 29, 2016 22:51
[2016-11-29 23:00] VITALS: BP 108/69; PULSE 87; RESP 18; O2SAT 97
--- NOTE | 2016-11-29 23:16 | RADRPT ---
EXAM DATE/TIME: 11/29/2016 23:01 [facility] COMPARISON: No previous studies available for comparison. INDICATIONS : Right knee pain, fell MEDICAL HISTORY : Arthritis. Previous knee injury, tree fell on knee SURGICAL HISTORY : None. ENCOUNTER: Initial ACUITY: 1 day PAIN SCORE: 9/10 LOCATION: Right Knee FINDINGS: No definite fractures, dislocations, lytic, or sclerotic lesions are seen. Tricompartment osteoarthri tis is seen worse in the medial compartment to a significant degree. CONCLUSION: Osteoarthritis. K. Phi Norwood MD on November 29, 2016 at 23:14 Board Certified Radiologist. This report was verified electronically.
[2016-11-29 23:43] LABS: ANION GAP 13 MEQ/L (5-15); BICARBONATE 21.7 MEQ/L (21.0-32.0); BLOOD UREA NITROGEN 9 MG/DL (7-18); CHLORIDE 104 MEQ/L (98-107); GLOMERULAR FILTRATION RATE 80 ML/MIN (>89); POTASSIUM 3.6 MEQ/L (3.5-5.1); SODIUM (NA) 139 MEQ/L (136-145)
[2016-11-29 23:46] LABS: ALKALINE PHOSPHATASE 136 U/L (45-117); ALT (GPT) 39 U/L (12-78); AST (GOT) 40 U/L (15-37); TOTAL BILIRUBIN ADULT 0.4 MG/DL (0.2-1.0)
[2016-11-30 00:11] LABS: AUTOMATED NEUTROPHIL # 2.2 TH/MM3 (1.8-7.7); BASOPHIL % 0.4 % (0.0-2.0); EOSINOPHIL # 0.1 TH/MM3 (0-0.4); EOSINOPHIL % 2.4 % (0.0-4.0); HEMATOCRIT 36.6 % (39.0-51.0); HEMO FLAGS DIFF FINAL; LYMPH % 47.5 % (9.0-44.0); LYMPHOCYTE # 2.6 TH/MM3 (1.0-4.8); MEAN CELL VOLUME 75.4 FL (80.0-100.0); MEAN CORPUSCULAR HEMOGLOBIN 25.4 PG (27.0-34.0); MEAN CORPUSCULAR HGB CONC 33.7 % (32.0-36.0); MONO % 9.6 % (0.0-8.0); NEUT % 40.1 % (16.0-70.0); PLATELET COUNT 126 TH/MM3 (150-450); RED BLOOD COUNT 4.86 MIL/MM3 (4.50-5.90); RED CELL DISTRIBUTION WIDTH 17.4 % (11.6-17.2); WHITE BLOOD COUNT 5.4 TH/MM3 (4.0-11.0)
[2016-11-30 00:18] LABS: AMPHETAMINE, URINE NEG (NEG); BARBITURATES, URINE NEG (NEG); COCAINE, URINE NEG (NEG)
[2016-11-30] MEDS ORDERED: GLIP10TA6 PO (00:29)
[2016-11-30 03:00] VITALS: BP 115/73; PULSE 87; RESP 18; O2SAT 97
[2016-11-30] MEDS ORDERED: LORazepam 1 MG TAB PO PRN (05:45)
[2016-11-30] MEDS ORDERED: LORazepam 2 MG/ML VIAL IV PUSH PRN ×4 (05:45)
[2016-11-30] MEDS ORDERED: LORazepam 2 MG TAB PO PRN (05:45)
[2016-11-30] MEDS ORDERED: FLUMAZENIL 0.5 MG/5 ML VIAL IV PUSH PRN (05:45)
[2016-11-30] MEDS: glipiZIDE 10 MG TAB PO SCH ×2 (08:41→17:30)
[2016-11-30 12:18] VITALS: BP 186/112; PULSE 94; RESP 21; O2SAT 95
[2016-11-30 18:46] VITALS: BP 188/96; PULSE 112; RESP 20; TEMP 98.2; O2SAT 98
[2016-11-30] MEDS ORDERED: IBUPROFEN 400 MG TAB PO ONE (20:15)
[2016-11-30 22:24] VITALS: BP 147/80; PULSE 102; RESP 18
[2016-12-01 01:50] VITALS: BP 143/81; PULSE 85; RESP 18; O2SAT 97
[2016-12-01 06:21] VITALS: BP 156/94; PULSE 82; RESP 18; O2SAT 98
[2016-12-01] MEDS: glipiZIDE 10 MG TAB PO SCH (08:00)
== END 2016-12-01 10:05 | disposition home or self-care (01) ==
LOC: NEPC 18:35 → NEPJ 12-01 10:05
DX: M17.11 Unilateral primary osteoarthritis, right knee (principal); R45.851 Suicidal ideations; E11.65 Type 2 diabetes mellitus with hyperglycemia; Z79.84 Long term (current) use of oral hypoglycemic drugs; Z79.899 Other long term (current) drug therapy
CPT/HCPCS: 73564; 80053; 80307; 85025; 96361; 96374; 96376; 99285; J1815; J2060; J7030

== ENCOUNTER 2017-12-07 12:10 | Emergency (ER) | payer SELFPAY ==
[~2017-12-07 12:10] MED LIST changes: +GLIP10TA6 PO; -METF500 PO
--- NOTE | 2017-12-07 13:45 | PD ---
History of Present Illness Chief Complaint: Psychiatric Symptoms Time Seen by Provider: 13:35 Travel History International Travel<30 Days: No Contact w/Intl Traveler<30days: No Known affected area: No History of Present Illness: Patient is a 57 y/o male, single, with a 31 year old son who lives in [place]. Patient was transferred under [facility] from [facility] to [facility] after a hospital stay at [facility] since 11/30/17. The Doss act states "this 57 -year-old man was brought in by police after patient threatened to jump off bridge to end his life." Patient cannot identify his home, he states that he lives with friends when they will take him in. He has history of IDDM, hypertension, chronic back pain and depression. He admits to daily consumption of alcohol including beer and vodka. The UDS from [facility] on 11/30/17 indicates an alcohol level of 212. Patient states he has limited income and no food stamps. 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 He states that he is disabled but does not collect disability. His parents are both and he denies any psychiatric illness or suicidal history in the family. He does not smoke , but admits to marijuana. His drug screen from was negative. He states that he suffers from PTSD due to finding his girlfriend approximately one year ago. Patient states that at one point he was prescribed Celexa for depression, but he has not taken this medication or has he been treated for many years. He cannot recall the provider or time frame when the Celexa was prescribed. He has a sister in [place] that he thinks will take him in when he "gets his medical and psychiatric symptoms addressed." Patient presents in a hospital gown. He is disheveled and looks his stated age. His speech is within normal limits for rate, tone and volume. Language and fund of knowledge are normal. Focus and concentration are intact. Memory grossly intact. Mood is depressed, flat and blunted. Insight and judgement are normal. He endorses that he needs help with his drinking and that his consumption of alcohol is not a good combination with his diabetes. When I initially asked him about jumping off the bridge, he denied any suicidal ideation and stated, " I have waited 9 days to get into the hospital to get help with my alcohol." When I explained that [facility] is not a detox facility he stated, " well admit me or I will jump off the bridge." Chart from [facility] reviewed and case discussed with nursing staff. I called Dr. Gold who recommended [facility] for management of his alcoholism. He is currently on the [facility] list awaiting disposition. Dx: Alcohol Misuse Disorder Depression, r/t substance use PFSH Past Medical History Atrial Fibrillation: Yes Anxiety: Yes Depression: Yes Cardiovascular Problems: Yes (HTN--RAN OUT OVER MONTH AGO) Diabetes: Yes (RAN OUT OF MEDS OVER A MONTH AGO) Diminished Hearing: No Hypertension: Yes Psychiatric: Yes Immunizations Current: Yes Psychiatric History Psychiatric History Hx Psychiatric Treatment: In patient tx " about 2 years ago" in [place] Reports dx w bipolar disorder Reports outpatietn treatment " I don't remember the name" Does not remember the medication he has taken History of Inpatient Treatment: Yes Social History Hx Alcohol Use: Yes (at least 12 beers per day.) Hx Tobacco Use: No (never) Hx Substance Use: Yes (MJ) Substance Use Type: Alcohol, Benzos (Valium,Xanax) Hx of Substance Use Treatment: No Allergies-Medications (Allergen,Severity, Reaction): Coded Allergies: No Known Allergies (Verified , 11/29/16) Reported Meds & Prescriptions Reported Meds & Active Scripts Active Glipizide 10 Mg Tab 10 Mg PO BIDAC Take 30 minutes before a meal Reported Glipizide 10 Mg Tab 20 Mg PO DAILY Take 30 minutes before a meal Mental Status Examination Appearance: Dirty, Disheveled Consciousness: Alert Orientation: x4 Motor Activity: Normal gait Speech: Unremarkable Language: Adequate Fund of Knowledge: Adequate Attention and Concentration: Adequate Memory: Unremarkable Mood: Appropriate Affect: Sad, Flat, Blunt Thought Process & Associations: Intact Thought Content: Appropriate Hallucination Type: None Delusion Type: None Suicidal Ideation: No Suicidal Plan: No Suicidal Intention: No Homicidal Ideation: No Homicidal Plan: No Homicidal Intention: No Insight: Adequate Judgment: Adequate MDM Medical Decision Making Medical Record Reviewed: Yes Assessment/Plan Patient admits to chronic use of beer and vodka on a daily basis. Medical history of IDDM, hypertension and chronic back pain. Patient has transient history of depression from many years ago when he started Celexa for a short period and stopped. He has no recall of other psychiatric care. D[place] Act remains in place. Will check with [facility] for a detox admission. Case discussed with Dr. Gold. Dx: Alcohol Misuse Disorder Depression, r/t alcohol use Diagnosis Primary Impression: Alcohol-induced mood disorder Additional Impression: Depressed Problem Qualifiers Sheryl Andersen Dec 07, 2017 13:45
--- NOTE | 2017-12-07 13:49 | PD ---
HPI Chief Complaint: Psychiatric Symptoms Time Seen by Provider: 13:48 Travel History International Travel<30 days: No Contact w/Intl Traveler<30days: No Traveled to known affect area: No History of Present Illness HPI This is a 57-year-old male who [facility] Past Medical History Atrial Fibrillation: Yes Anxiety: Yes Depression: Yes Cardiovascular Problems: Yes (HTN--RAN OUT OVER MONTH AGO) Diabetes: Yes (RAN OUT OF MEDS OVER A MONTH AGO) Diminished Hearing: No Hypertension: Yes Psychiatric: Yes Immunizations Current: Yes Social History Alcohol Use: Yes (at least 12 beers per day.) Tobacco Use: No (never) Substance Use: Yes (MJ) Allergies-Medications (Allergen,Severity, Reaction): Coded Allergies: No Known Allergies (Verified , 11/29/16) Reported Meds & Prescriptions Reported Meds & Active Scripts Active Glipizide 10 Mg Tab 10 Mg PO BIDAC Take 30 minutes before a meal Reported Glipizide 10 Mg Tab 20 Mg PO DAILY Take 30 minutes before a meal Otis Woodard Dec 07, 2017 13:49
--- NOTE | 2017-12-07 13:54 | PD ---
HPI Chief Complaint: Psychiatric Symptoms Time Seen by Provider: 13:48 Travel History International Travel<30 days: No Contact w/Intl Traveler<30days: No Traveled to known affect area: No History of Present Illness HPI This is a 57-year-old male who presents under Doss act initiated by a physician. According to his paperwork, "57-year-old white male is brought in by police after patient threatened to jump off bridge to in life." The patient was transferred from [facility]. He was medically cleared at [facility]. He has been transferred here for psychiatric evaluation. He reports that he has been suffering from depression for 6 months. He reports occasional suicidal thoughts. He reports occasional alcohol use. Denies any drug or tobacco use. Denies any hallucinations. He has no medical complaints at this time. [facility] Past Medical History Atrial Fibrillation: Yes Anxiety: Yes Depression: Yes Cardiovascular Problems: Yes (HTN--RAN OUT OVER MONTH AGO) Diabetes: Yes (RAN OUT OF MEDS OVER A MONTH AGO) Diminished Hearing: No Hypertension: Yes Psychiatric: Yes Immunizations Current: Yes Social History Alcohol Use: Yes (at least 12 beers per day.) Tobacco Use: No (never) Substance Use: Yes (MJ) Allergies-Medications (Allergen,Severity, Reaction): Coded Allergies: No Known Allergies (Verified , 11/29/16) Reported Meds & Prescriptions Reported Meds & Active Scripts Active Glipizide 10 Mg Tab 10 Mg PO BIDAC Take 30 minutes before a meal Reported Glipizide 10 Mg Tab 20 Mg PO DAILY Take 30 minutes before a meal Review of Systems Except as stated in HPI: all other systems reviewed are Neg Physical Exam Narrative GENERAL: Well-developed well-nourished male in no acute distress SKIN: Warm and dry. HEAD: Atraumatic. Normocephalic. EYES: Pupils equal and round. No scleral icterus. No injection or drainage. ENT: No nasal bleeding or discharge. Mucous membranes pink and moist. NECK: Trachea midline. No JVD. CARDIOVASCULAR: Regular rate and rhythm. No murmur appreciated. RESPIRATORY: No accessory muscle use. Clear to auscultation. Breath sounds equal bilaterally. GASTROINTESTINAL: Abdomen soft, non-tender, nondistended. Hepatic and splenic margins not palpable. MUSCULOSKELETAL: No obvious deformities. No edema NEUROLOGICAL: Awake and alert. No obvious cranial nerve deficits. Motor grossly within normal limits. Normal speech. PSYCHIATRIC: Anxious; insight and judgment normal. Data Data Last Documented VS Vital Signs Date Time Temp Pulse Resp B/P (MAP) Pulse Ox O2 Delivery O2 Flow Rate FiO2 12/08/17 05:15 16 12/07/17 23:19 Room Air 12/07/17 18:37 98.7 77 99 Orders Orders Diet Diabetic (12/07/17 Dinner) Diazepam (Valium) (12/07/17 17:30) Diet Diabetic (12/08/17 Breakfast) MDM Medical Decision Making Medical Screen Exam Complete: Yes Emergency Medical Condition: Yes Medical Record Reviewed: Yes Differential Diagnosis Adjustment reaction, acute psychosis, major depressive disorder, depressive disorder not otherwise specified, substance-induced mood disorder Narrative Course This patient has been medically cleared at [facility]. Mental health screening discussed with the patient. Psychiatric screen ordered. The patient is medically cleared. This patient has been seen by psychiatrist Dr. Gold who is discharging the patient. He has no medical issues that would warrant further hospitalization. Diagnosis Primary Impression: Medical clearance for psychiatric admission Med/Other Pt SpecificInfo: No Change to Meds Disposition: 01 DISCHARGE HOME Condition: Stable Otis Woodard Dec 07, 2017 13:53
[2017-12-07 14:34] VITALS: BP 134/88; PULSE 97; RESP 16; TEMP 99.3; O2SAT 98
[2017-12-07] MEDS ORDERED: DIAZEPAM 2 MG TAB PO ONE (17:30)
[2017-12-07 18:37] VITALS: BP 135/74; PULSE 77; RESP 16; TEMP 98.7; O2SAT 99
[2017-12-07 23:19] VITALS: RESP 18
[2017-12-08 05:15] VITALS: RESP 16
--- NOTE | 2017-12-08 13:32 | PD.PSY.CON ---
Provisional Diagnosis Admission Date [place]. Polysubstance dependence History of Present Illness Service Psychiatry Consult Requested By ER Reason for Consult Suicidal ideation Primary Care Physician No Primary Care Physician HPI Patient is a 57 y/o male, single, who lives in [place]. Patient was transferred under [place] [facility] from [facility] to [facility] after a hospital stay at [place] since 11/30/17. The Doss act states "this 57-year-old man was brought in by police after patient threatened to jump off bridge to end his life." Patient cannot identify his home, he states that he lives with friends when they will take him in. He has history of IDDM, hypertension, chronic back pain and depression. He admits to daily consumption of alcohol including beer and vodka. The UDS from [facility] on 11/30/17 indicates an alcohol level of 212. Patient states he has limited income and no food stamps. 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 He states that he is disabled but does not collect disability. His parents are both and he denies any psychiatric illness or suicidal history in the family. He does not smoke , but admits to marijuana. His drug screen from 11/30/17 was negative. He states that he suffers from PTSD due to finding his girlfriend approximately one year ago. Patient states that at one point he was prescribed Celexa for depression, but he has not taken this medication or has he been treated for many years. He cannot recall the provider or time frame when the Celexa was prescribed. He has a sister in [place] that he thinks will take him in when he "gets his medical and psychiatric symptoms addressed." On psychiatric evaluation today the patient denies suicidal ideation, denies homicidal ideation, denies visual and auditory hallucinations patient states that he does not wish to wait for detox or rehab. Past Family Social History Coded Allergies: No Known Allergies (Verified , 11/29/16) Active Scripts Glipizide (Glipizide) 10 Mg Tab, 10 MG PO BIDAC for Blood Sugar Management, #60 TAB 0 Refills Take 30 minutes before a meal Prov:Saul Javier MD 11/30/16 Reported Medications Glipizide (Glipizide) 10 Mg Tab, 20 MG PO DAILY for Blood Sugar Management, #30 TAB 0 Refills Take 30 minutes before a meal 11/29/16 Physical Exam Vital Signs Vital Signs Date Time Temp Pulse Resp B/P (MAP) Pulse Ox O2 Delivery O2 Flow Rate FiO2 12/08/17 09:51 12/08/17 05:15 16 12/07/17 23:19 Room Air 12/07/17 18:37 98.7 77 99 Mental Status Examination Appearance: Dirty, Disheveled Consciousness: Alert Orientation: x4 Motor Activity: Normal gait Speech: Unremarkable Language: Adequate Fund of Knowledge: Adequate Attention and Concentration: Adequate Memory: Unremarkable Mood: Appropriate Affect: Appropriate, Blunt Thought Content: Appropriate Hallucination Type: None Delusion Type: None Suicidal Ideation: No Suicidal Plan: No Suicidal Intention: No Homicidal Ideation: No Homicidal Plan: No Homicidal Intention: No Insight: Adequate Judgment: Adequate Assessment & Plan Problem List: (1) Alcohol-induced mood disorder ICD Codes: F10.94 - Alcohol use, unspecified with alcohol-induced mood disorder Status: Acute Assessment & Plan: Patient does not meet criteria for involuntary psychiatric admission at this moment. Doss act will be lifted. Patient will be provided for referral for detox in the [place] area Assessment & Plan Estimated LOS: Abram Shay MD Dec 08, 2017 13:32
== END 2017-12-08 10:24 | disposition home or self-care (01) ==
LOC: NEPJ 12:10
DX: F10.94 Alcohol use, unspecified with alcohol-induced mood disorder (principal); E11.9 Type 2 diabetes mellitus without complications; Z79.84 Long term (current) use of oral hypoglycemic drugs
CPT/HCPCS: 99283